=== PATIENT | female | born 1950 | race Two or more races ===

== ENCOUNTER 2019-11-05 07:46 | Outpatient (CLI) | payer OTHER | END 2019-11-05 08:00 | disposition home or self-care (01) | LOC: NUCLEAR 07:46 | DX: E05.80 Other thyrotoxicosis without thyrotoxic crisis or storm (principal); E05.00 Thyrotoxicosis with diffuse goiter without thyrotoxic crisis or storm | CPT/HCPCS: 78012; A9531 ==

== ENCOUNTER 2019-11-06 08:55 | Outpatient (CLI) | payer OTHER | END 2019-11-06 09:30 | disposition home or self-care (01) | LOC: NUCLEAR 08:55 | DX: E05.80 Other thyrotoxicosis without thyrotoxic crisis or storm (principal) | CPT/HCPCS: 78013; A9512 ==

== ENCOUNTER 2019-11-08 13:26 | Outpatient (CLI) | payer OTHER | END 2019-11-08 13:39 | disposition home or self-care (01) | LOC: NUCLEAR 13:26 | DX: E05.00 Thyrotoxicosis with diffuse goiter without thyrotoxic crisis or storm (principal); E05.80 Other thyrotoxicosis without thyrotoxic crisis or storm | CPT/HCPCS: 79005; A9517 ==